=== PATIENT | female | born 1980 | race Caucasian/White ===

== ENCOUNTER → 2017-07-09 | Outpatient (CLI) | payer OTHER ==
--- NOTE | 2017-07-10 09:49 | RADIOLOGY REPORT (SQ) ---
EXAM DESCRIPTION: MRI RT UPPER JOINT WITHOUT COMPLETED DATE/TIME: 07/09/2017 7:48 pm REASON FOR STUDY: STRAIN OF MUSCLE(S) AND TENDON(S) OF THE ROTATOR CUFF OF RIGHT SHOULDER, IN S46.01 1A STRAIN OF MUSC/TEND THE ROTATOR CUFF OF RIGHT SHOUL COMPARISON: None. TECHNIQUE: Right shoulder images acquired and stored on PACS. Multiplanar imaging to include fat sen sitive sequences such as T1, water sensitive sequences such as FST2/STIR, cartilage sensitive sequenc es such as FSPD/gradient-echo sequences. LIMITATIONS: None. FINDINGS: BONE MARROW AND CORTEX: No worrisome bone lesions or marrow replacement. No occult fractur es. JOINT OR BURSAL EFFUSION: No glenohumeral joint effusion. Small amount of fluid in the subacromial/s ubdeltoid bursa GLENO-HUMERAL ARTICULATION: Normal articulation. No subluxation. No cystic change. No osteophytes or cartilage loss. ACROMION AND AC JOINT: Type 2 No down-sloping or distal spur. Sub-acromial space maintained. No sig nificant AC joint arthropathy. ROTATOR CUFF AND INTERVAL: No significant tear or signal alteration. No cuff muscle atrophy. No rotator interval tear. No rotator interval thickening to suggest adhesive capsulitis. LABRUM AND BICEPS LABRAL COMPLEX: Intra-articular long head biceps tendon is normal signal. There is high signal throughout the anterior labrum on gradient echo axial images 7-11 compatible with dege neration. No paralabral cysts. REMAINDER OF LABRUM AND IGHL : No gross tear or paralabral cyst formation. Labral evaluation is less than optimal without joint distention. No thickening of IGHL to suggest adhesive capsulitis. PERIARTICULAR AND ADJACENT SOFT TISSUES: There is minimal edema in the deltoid muscle at the proximal musculotendinous junction best shown on axial images 3-8, coronal image 3, and sagittal image 7 OTHER: No other significant finding. IMPRESSION: Increased signal throughout the anterior labrum worrisome for degeneration. No paralabr al cysts. Trace subacromial/ subdeltoid bursal fluid Minimal edema in the proximal deltoid muscle at the musculotendinous junction from mild muscle strain TECHNICAL DOCUMENTATION: JOB ID: [id number] [employer]- All Rights Reserved
== END ==
LOC: RAD 18:37
PROVIDERS: ATTEND Nurse Practitioner Family
DX: S46.011A Strain of muscle(s) and tendon(s) of the rotator cuff of right shoulder, initial encounter (principal); X58.XXXA Exposure to other specified factors, initial encounter; Y93.9 Activity, unspecified; Y92.9 Unspecified place or not applicable; Y99.9 Unspecified external cause status